=== PATIENT | male | born 1955 | race African-American/Black ===

== ENCOUNTER 2019-11-01 10:49 | Emergency (ER) | payer MEDICARE, MEDICAID ==
[2019-11-01] MEDS ORDERED: Verapamil 5 MG/2 ML VIAL ONE (11:28)
[2019-11-01] MEDS ORDERED: Mag-Al Plus 1200 MG/1200 MG/120 MG/30 ML UDCUP ONE ×2 (11:29→13:39)
[2019-11-01] MEDS ORDERED: Lidocaine Viscous Sol 2% 15 ml UD Cup ONE ×2 (11:29→13:39)
[2019-11-01 11:48] LABS: #Basophils 0.1 thou/uL (0.0-0.2); #Eosinphils 0.1 thou/uL (0.0-0.7); #Lymphocytes 2.1 thou/uL (1.20-3.40); #Monocytes 0.6 thou/uL (0.11-0.59); #Neutrophils 7.8 thou/uL (1.40-6.50); %Basophils 0.7 % (0.0-1.0); %Eosinophils 0.9 % (0.0-10.0); %Lymphocytes 19.8 % (21.0-51.0); %Monocytes 5.8 % (0.0-10.0); %Neutrophils 72.9 % (42.0-75.0); Hemoglobin 15.2 g/dL (14.0-18.0); Mean Corpuscular HGB CONC 30.5 g/dL (32.0-36.0); Mean Corpuscular Hemoglobin 30.5 pg (27.0-31.0); Mean Corpuscular Volume 100.2 fL (78.0-98.0); Mean Platelet Volume 7.7 fL (7.4-10.4); Platelet Count 313 thou/uL (130-400); RBC Distribution Width 13.3 % (11.5-14.5); Red Blood Cell (RBC) Count 4.97 mill/uL (4.70-6.10); White Blood Cell (WBC) Count 10.7 thou/uL (4.8-10.8)
[2019-11-01 12:02] LABS: ALT (SGPT) 16 U/L (8-55); AST (SGOT) 12 U/L (5-34); Albumin 4.2 g/dL (3.4-4.8); Alkaline Phosphatase 45 U/L (40-110); Anion Gap 15 mmol/L (10-20); BUN (Urea Nitrogen) 10 mg/dL (8.4-25.7); Bilirubin, Total 1.5 mg/dL (0.2-1.2); Calc. Creatinine Clearance 0 mL/min (70-130); Calcium 9.3 mg/dL (7.8-10.44); Carbon Dioxide 26 mmol/L (23-31); Chloride 102 mmol/L (98-107); Estimated GFR-MDRD Greater than 90; Globulin 3.5 g/dL (2.4-3.5); Glucose 116 mg/dL (80-115); Potassium 4.2 mmol/L (3.5-5.1); Protein, Total 7.7 g/dL (5.8-8.1); Sodium 139 mmol/L (136-145)
--- NOTE | 2019-11-01 12:27 | RAD ---
PORTABLE UPRIGHT FRONTAL CHEST: Date: 11/01/2019 COMPARISON: 07/21/2013. HISTORY: Chest pain. FINDINGS: No pneumothorax or pleural fluid. No focal consolidation or alveolar edema. Heart and mediastinal con tours are grossly unremarkable. There is atherosclerotic calcification of the aortic arch. IMPRESSION: No acute findings. POS: [facility]
== END 2019-11-01 14:05 | disposition home or self-care (01) ==
LOC: MADERS 10:49
DX: K29.70 Gastritis, unspecified, without bleeding (principal); K21.9 Gastro-esophageal reflux disease without esophagitis; F17.210 Nicotine dependence, cigarettes, uncomplicated; Z79.899 Other long term (current) drug therapy
CPT/HCPCS: 36415; 71045; 80053; 83880; 84484; 85025; 93005

== ENCOUNTER 2019-11-18 15:20 | Outpatient (CLI) | payer MEDICARE, MEDICAID ==
--- NOTE | 2019-11-18 15:44 | RAD ---
LEFT SCAPULA 2 VIEWS: HISTORY: Shoulder pain. FINDINGS: Scapula appears intact. No significant degenerative change. AC joint appears normally aligned. The humeral head appears normally positioned. IMPRESSION: No acute finding. POS: [facility]
== END 2019-11-18 15:21 | disposition home or self-care (01) ==
LOC: MADRAD 15:20
PROVIDERS: ATTEND Family Medicine
DX: M25.512 Pain in left shoulder (principal)

== ENCOUNTER 2020-09-10 15:00 | Emergency (ER) | payer MEDICARE, MEDICAID ==
[~2020-09-10 15:00] MED LIST: Iopamidol 370 76% 125 ML VIAL FS ONE; Sodium Chloride 0.9% 1,000 ML BAG ONE; Sodium Chloride 0.9% 100 ML BAG ONE
[2020-09-10] MEDS ORDERED: Lidocaine Viscous Sol 2% 15 ml UD Cup ONE (15:42)
[2020-09-10] MEDS ORDERED: Mag-Al Plus 1200 MG/1200 MG/120 MG/30 ML UDCUP ONE (15:42)
[2020-09-10] MEDS ORDERED: Pantoprazole 40 MG VIAL ONE (15:51)
[2020-09-10] MEDS ORDERED: Ondansetron PF 4 MG/2 ML Vial ONE (15:51)
[2020-09-10 15:54] LABS: #Basophils 0.1 thou/uL (0.0-0.2); #Lymphocytes 1.6 thou/uL (1.20-3.40); #Monocytes 0.8 thou/uL (0.11-0.59); #Neutrophils 7.8 thou/uL (1.40-6.50); %Eosinophils 0.2 % (0.0-10.0); %Lymphocytes 15.4 % (21.0-51.0); %Monocytes 7.9 % (0.0-10.0); %Neutrophils 75.4 % (42.0-75.0); Hemoglobin 14.1 g/dL (14.0-18.0); Mean Corpuscular HGB CONC 33.4 g/dL (32.0-36.0); Mean Corpuscular Hemoglobin 32.3 pg (27.0-31.0); Mean Corpuscular Volume 96.7 fL (78.0-98.0); Mean Platelet Volume 7.6 fL (7.4-10.4); Platelet Count 302 thou/uL (130-400); RBC Distribution Width 12.4 % (11.5-14.5); Red Blood Cell (RBC) Count 4.38 mill/uL (4.70-6.10); White Blood Cell (WBC) Count 10.3 thou/uL (4.8-10.8)
[2020-09-10 16:08] LABS: ALT (SGPT) 11 U/L (8-55); AST (SGOT) 9 U/L (5-34); Albumin 3.8 g/dL (3.4-4.8); Alkaline Phosphatase 43 U/L (40-110); Anion Gap 17 mmol/L (10-20); BUN (Urea Nitrogen) 11 mg/dL (8.4-25.7); Bilirubin, Total 0.9 mg/dL (0.2-1.2); Calc. Creatinine Clearance 0 mL/min (70-130); Calcium 9.2 mg/dL (7.8-10.44); Carbon Dioxide 26 mmol/L (23-31); Chloride 99 mmol/L (98-107); Estimated GFR-MDRD 81; Globulin 3.2 g/dL (2.4-3.5); Glucose 102 mg/dL (80-115); Lipase 6 U/L (8-78); Potassium 3.6 mmol/L (3.5-5.1); Sodium 138 mmol/L (136-145)
--- NOTE | 2020-09-10 16:38 | RAD ---
2 view chest: [09/10/2020] Comparison:11/01/2019 HISTORY: Chest pain FINDINGS: Heart and mediastinal contours are grossly unremarkable. No pneumothorax or pleural fluid. No focal consolidation or alveolar edema. There is atherosclerotic calcification of the aortic arch and mild stable increased linear interstitial density. IMPRESSION: No acute findings.
[2020-09-10 17:12] LABS: Troponin I 0.011 ng/mL (< 0.028)
--- NOTE | 2020-09-10 18:50 | CT ---
CT ANGIOGRAM CHEST WITH 3D RENDERING CT ANGIOGRAM ABDOMEN WITH 3D RENDERING History: Epigastric pain. FINDINGS: There are fairly diffuse emphysematous changes noted, probably central lobular, involving mostly the upper and midlung zones. No pleural effusion or pericardial effusion. No mediastinal mass or adenopat hy. In the liver there are several, up to approximately 4, focal areas of arterial phase enhancement whic h are nonspecific. These could potentially represent some perfusion variance or be some flash filling in association with some small masses. These are not adequately characterized on this study. In that regard, a follow up non-emergent abdomen and pelvic CT scan with and without contrast with liver mas s protocol should be considered. There is no evidence for thoracic or abdominal aortic aneurysm or di ssection. There are some scattered air and fluid levels and nondilated small bowel, nonspecific. The gallbladder is poorly defined because of considerable motion artifact through this region. Pancreas a ppears unremarkable. No renal hydronephrosis or overt calculus. Small spleen. Slightly thickened deo kassie wall, nonspecific. IMPRESSION: 1. No evidence for thoracic or abdominal aortic aneurysm or dissection. 2. Multiple small foci of arterial enhancement, mostly punctate, within the right and left lobes of t he liver. Consider non-emergent follow up CT scan with and without contrast with hepatic mass protoco l for further assessment of these. 3. Scattered air fluid levels within borderline to normal sized small bowel, nonspecific. POS: [facility]
== END 2020-09-10 19:20 | disposition home or self-care (01) ==
LOC: MADERS 15:00
DX: R10.13 Epigastric pain (principal); K21.9 Gastro-esophageal reflux disease without esophagitis; F17.210 Nicotine dependence, cigarettes, uncomplicated; Z79.899 Other long term (current) drug therapy
CPT/HCPCS: 36415; 71046; 71275; 74174; 80053; 83690; 84484; 85025; 93005; 96374; 96375; C9113; J2405; J3490; J7050; Q9967